=== PATIENT | male | born 1990 | race African-American/Black ===

== ENCOUNTER 2021-12-26 14:48 | Outpatient (CLI) | payer OTHER, SELFPAY ==
[2021-12-26 16:51] LABS: Kit Draw Collected
== END 2021-12-26 14:49 | disposition home or self-care (01) ==
LOC: ANHGOSHLAB 14:51
PROVIDERS: PCP Emergency Medicine; Visit Provider Emergency Medicine
DX: R31.9 Hematuria, unspecified (principal); R80.9 Proteinuria, unspecified
CPT/HCPCS: 36415

== ENCOUNTER → 2021-12-26 15:17 | Outpatient (CLI) | payer OTHER, SELFPAY ==
--- NOTE | ~2021-12-26 | US_ITS ---
US renal BI 12/26/2021 16:01 Procedure: Realtime transabdominal ultrasound of the kidneys and bladder. Indication: Hematuria Comparison: No prior studies for comparison. Findings: Renal echotexture is normal bilaterally without hydronephrosis, contour deforming mass or r enal calculus. The right kidney measures 12 cm and left kidney measures 11.6 cm. Bladder is not well distended for evaluation. Impression: 1: Unremarkable renal ultrasound. No stones, masses or hydronephrosis. Reviewed, dictated and finalized at location A. NT CAR DUMPER Impression: 1: Unremarkable renal ultrasound. No stones, masses or hydronephrosis.
== END ==
PROVIDERS: PCP Emergency Medicine; Visit Provider Emergency Medicine
DX: R31.9 Hematuria, unspecified (principal)
CPT/HCPCS: 76775

== ENCOUNTER 2022-02-09 09:02 | Emergency (ER) | payer OTHER, SELFPAY ==
[2022-02-09 09:07] VITALS: BP 139/95; PULSE 80; RESP 18; TEMP 37.1; O2SAT 95
[2022-02-09 09:41] LABS: Basophils Percent Auto 0.3 % (0.2-1.2); Eosinophils Percent Auto 0.5 % (0-4.4); Hemoglobin 13.5 g/dL (14.0-18.0); Immature Granulocyte Absolute 0.01 K/mm3 (0.00-0.031); Immature Granulocyte Percent A 0.3 % (0-0.5); Lymphocytes Absolute Auto 1.07 K/mm3 (0.9-3.2); Lymphocytes Percent Auto 28.5 % (18.3-44.2); Mean Corpuscular HGB Conc 32.1 g/dl (32-36); Mean Corpuscular Hemoglobin 28.9 pg (26-34); Mean Corpuscular Volume 89.9 fl (80-100); Mean Platelet Volume 10.2 fl (7.4-10.4); Monocytes Absolute Auto 0.3 K/mm3 (0.1-0.6); Monocytes Percent Auto 8.8 % (2.6-8.5); Neutrophils Absolute Auto 2.3 K/mm3 (1.3-6.7); Neutrophils Percent Auto 61.6 % (45.5-73.1); Platelet Count Result 289 k/mm3 (150-375); Red Blood Count 4.67 M/mm3 (4.6-6.20); Red Cell Distribution Width 12.5 % (11.5-14.5); White Blood Count 3.8 K/mm3 (4.5-10.0)
[2022-02-09 09:43] LABS: Add Urine Microscopic? NO; Appearance Urine Clear (Clear); Bilirubin Urine Negative (Negative); Blood Urine Negative (Negative); Color Urine Yellow (Yellow); Glucose Urine UA Negative (Negative); Ketones Urine Negative (Negative); Leukocyte Esterase Ur Negative LEU/UL (Negative); Nitrate Urine Negative (Negative); Protein Urine Negative (Negative); Urobilinogen Urine 0.2 mg/dL (<2.0); pH Urine 6.5 (5.0-9.0)
[2022-02-09 09:51] LABS: Alanine Aminotransferase 14 U/L (6-50); Albumin Level 4.8 g/dL (3.5-5.1); Alkaline Phosphatase 55 U/L (38-126); Anion Gap 7 mmol/L (8-16); Aspartate Amino Transferase 31 U/L (17-59); Bilirubin,Total 0.7 mg/dL (0.2-1.3); Blood Urea Nitrogen 13 mg/dL (9-20); Calcium 8.8 mg/dL (8.4-10.2); Carbon Dioxide 28 mmol/L (22-30); Chloride 103 mmol/L (98-107); Estimated Glomerular Filt Rate > 60; Glucose 98 mg/dL (65-110); Potassium 3.4 mmol/L (3.4-5.0); Sodium 138 mmol/L (137-145)
[2022-02-09 09:52] LABS: Ethanol < 10 mg/dL (<10)
[2022-02-09 10:01] LABS: Amphetamine Screen Urine Negative (Negative); Barbiturate Screen Urine Negative (Negative); Benzodiazepines Screen Urine Negative (Negative); Cannabinoid Screen Urine Negative (Negative); Cocaine Screen Urine Negative (Negative); Methadone Screen Urine Negative (Negative); Opiate Screen Urine Negative (Negative); Phencyclidine Screen Urine Negative (Negative)
[2022-02-09 10:20] LABS: Influenza A QL RT-PCR Negative (Negative); Influenza B QL RT-PCR Negative (Negative); SARS-CoV-2 RNA PCR Positive
--- NOTE | 2022-02-09 10:24 | ED.PSYCH ---
HPI - Psych General Chief Complaint: Psychiatric Symptoms <DK Meredith Last Filed: 02/11/22 15:46> Stated Complaint: SI <DK Meredith Last Filed: 02/11/22 15:46> Time Seen by Provider: 02/09/22 09:07 <DK Meredith Last Filed: 02/11/22 15:46> Source: patient, EMS and old records reviewed <DK Meredith Last Filed: 02/11/22 15:46> Mode of arrival: EMS <DK Meredith Last Filed: 02/11/22 15:46> Limitations: no limitations <DK Meredith Last Filed: 02/11/22 15:46> History of Present Illness HPI Narrative: This is a 31 year old male that presents to the ER for suicidal ideations. He reports is going through a break up. He had a plan today to cut his wrists or stab himself. He is from [facility]. Reports all of his family are still back in [place]. He reports no previous attempts at self harm. He does not take anything for anxiety or depression. No previous psychiatric hospitalizations. No other concerns today. Denies homicidal ideations or hallucinations. <DK Meredith Last Filed: 02/11/22 15:46> Related Data Home Medications: Home Medications Medication Instructions Recorded Confirmed No Home Medications 12/26/21 12/26/21 <DK Meredith Last Filed: 02/11/22 15:46> Allergies/Adverse Reactions: Allergies Allergy/AdvReac Type Severity Reaction Status Date / Time chloroquine AdvReac Mild Itching Verified 12/26/21 14:28 <DK Meredith Last Filed: 02/11/22 15:46> Review of Systems Review of Systems: CONSTITUTIONAL: Denies fever CARDIOVASCULAR: Denies chest pain RESPIRATORY: Reports cough. Denies shortness of breath GASTROINTESTINAL: Denies abdominal pain, nausea, vomiting NEUROLOGIC: Reports headache. Denies numbness, or weakness. PSYCHIATRIC: Reports depression. <DK Meredith Last Filed: 02/11/22 15:46> All systems reviewed & are unremarkable except as noted in HPI and below <Zoraida Perez PA-C - Last Filed: 02/11/22 15:46> PMFSH Past Medical History Medical History: Medical History (Updated 02/09/22 @ 17:21 by Zoraida Perez PA-C) No active medical problems <Zoraida Perez PA-C - Last Filed: 02/11/22 15:46> Surgical History Surgical History: Surgical History (Updated 12/26/21 @ 14:06 by Filipe Perez MA) No history of previous surgery <Zoraida Perez PA-C - Last Filed: 02/11/22 15:46> Social History Social History: Social History (Updated 12/26/21 @ 14:05 by Filipe Perez MA) Smoking status: Former smoker (socially only) Alcohol intake: current Substance use type: does not use Lack of Transportation: No Lack of Food: Never True Current Housing: I Have Housing Concerned About Future Housing: No Difficulty Paying Gas/Electric Bills: No Difficulty Paying for Meds: No Currently Unemployed: No Difficulty w/ Childcare or Family Care: No <Zoraida Perez PA-C - Last Filed: 02/11/22 15:46> Exam Narrative: GENERAL: Well-appearing, well-nourished, and in no acute distress. HEAD: Normocephalic, atraumatic. EYES: EOMI. CHEST: No respiratory distress. HEART: Regular rate EXTREMITIES: Normal range of motion. No edema. SKIN: Warm, dry, no rash. NEURO: No focal deficits. Alert and oriented x3. PSYCH: Depressed mood and affect <Zoraida Perez PA-C - Last Filed: 02/11/22 15:46> Course Course Emergency Course: Patient's COVID test came back positive. He does report that he has had a cough and headaches the last couple of days Patient is medically cleared for evaluation by crisis. He was updated on workup Crisis evaluated patient. He will be voluntarily placed. Will be awaiting COVID quarantine Patient had requested something to help him rest. Given a dose of Benadryl Patient currently resting comfortably. Care taken over by Dr. Alfonso at shift change <Zoraida Varner
--- NOTE | 2022-02-09 11:32 | PC.NURSE ---
Patient report received from KIKE Partida. All questions answered and care of patient assumed. Patient resting quietly in stretcher with patient director safety at bedside. Patient medically cleared. Will notify Crisis.
--- NOTE | 2022-02-09 12:20 | PC.NURSE ---
precautionary reg diet lunch tray odered
--- NOTE | 2022-02-09 16:13 | PC.NURSE ---
Patient's friends updated after getting verbal consent from patient. Gave this RN patient's phones and wallet which were placed with his belongings in secured location.
[2022-02-09] MEDS: diphenhydrAMINE HCl CAP 25 MG CAPSULE PO (16:36)
--- NOTE | 2022-02-09 17:01 | PC.NURSE ---
regular precautionary diet tray ordered
--- NOTE | 2022-02-09 17:02 | PC.NURSE ---
At the request of the patient his employee was notified of his hospital admission.
[2022-02-09 21:05] VITALS: BP 128/81; PULSE 93; RESP 16; O2SAT 100
--- NOTE | 2022-02-09 22:53 | PC.NURSE ---
Patient report given to KIKE Ramirez. All questions answered and care of patient transferred.
--- NOTE | 2022-02-09 22:58 | PC.NURSE ---
pt resting with sitter at bedside
[2022-02-10 02:10] VITALS: BP 124/76; PULSE 78; RESP 18; TEMP 36.9; O2SAT 100
--- NOTE | 2022-02-10 04:45 | PC.NURSE ---
pt requesting something to sleep, provider notified
[2022-02-10] MEDS: LORazepam (*CRX) 1 MG TABLET PO (04:59)
--- NOTE | 2022-02-10 10:15 | PC.NURSE ---
CALLED FOR AN UPDATE. AWARE NO VISITORS ALLOWED. PT INFORMED THAT SHE CALLED.
[2022-02-10 12:11] VITALS: BP 137/80; PULSE 89; RESP 18; TEMP 36.8; O2SAT 98
--- NOTE | 2022-02-10 12:16 | PC.NURSE ---
food tray ordered at 1210
--- NOTE | 2022-02-10 15:00 | PC.NURSE ---
CALLED YINKA RODRIGEZ AT [phone] AND [facility] FAN AT [phone] PER PT REQUEST TO LET THEM KNOW HE WAS STILL IN THE HOSPITAL
[2022-02-10 19:46] VITALS: BP 121/69; PULSE 81; RESP 14; O2SAT 100
[2022-02-10] MEDS: MELATONIN 3 MG TABLET PO (23:43)
[2022-02-11 08:41] VITALS: BP 131/78; PULSE 78; RESP 18; TEMP 36.4; O2SAT 100
--- NOTE | 2022-02-11 08:47 | PC.NURSE ---
pt. denies SI at this time, per Dr. Baker calling crisis for re-evaluation.
== END 2022-02-11 10:42 | disposition home or self-care (01) ==
PROVIDERS: Physician Assistant; Emergency Provider Emergency Medicine; PCP Emergency Medicine
DX: R45.851 Suicidal ideations (principal); U07.1 COVID-19
CPT/HCPCS: 36415; 80053; 80307; 81003; 84443; 85025; 87636; 99284; A9270

== ENCOUNTER 2022-10-08 11:42 | Outpatient (CLI) | payer OTHER, SELFPAY ==
[2022-10-08 20:27] LABS: HIV 1/2 Ab P24 Ag Result Negative (Negative)
[2022-10-09 02:41] LABS: Chlamydia trachomatis NOT DETECTED (NOT DETECTE); Neisseria gonorrhoeae PCR NOT DETECTED (NOT DETECTE)
[2022-10-09 14:31] LABS: Rapid Plasma Reagin Non-Reactive (NonReactive)
== END 2022-10-08 11:43 | disposition home or self-care (01) ==
LOC: ANHGOSHLAB 11:43
PROVIDERS: PCP Emergency Medicine; Visit Provider Emergency Medicine
DX: Z11.3 Encounter for screening for infections with a predominantly sexual mode of transmission (principal)
CPT/HCPCS: 36415; 86592; 86703; 87491; 87591; G0432

== ENCOUNTER 2023-02-23 15:37 | Outpatient (CLI) | payer OTHER, SELFPAY ==
[2023-02-23 20:27] LABS: Hepatitis B Surface Antigen Negative (Negative)
[2023-02-23 20:28] LABS: HIV 1/2 Ab P24 Ag Result Negative (Negative)
[2023-02-23 21:06] LABS: Trichomonas Vag PCR NOT DETECTED (NOT DETECTE)
[2023-02-24 14:02] LABS: Rapid Plasma Reagin Non-Reactive (NonReactive)
[2023-02-24 18:33] LABS: Chlamydia trachomatis NOT DETECTED (NOT DETECTE); Neisseria gonorrhoeae PCR NOT DETECTED (NOT DETECTE)
== END 2023-02-23 15:38 | disposition home or self-care (01) ==
LOC: ANHGOSHLAB 15:38
PROVIDERS: PCP Emergency Medicine; Visit Provider Emergency Medicine
DX: Z11.3 Encounter for screening for infections with a predominantly sexual mode of transmission (principal)
CPT/HCPCS: 36415; 86592; 86703; 87340; 87491; 87591; 87661; G0432